=== PATIENT | male | born 1950 | race Caucasian/White ===

== ENCOUNTER → 2021-05-25 | Outpatient (CLI) | payer MEDICARE | LOC: CT 10:19 | DX: R51.9 Headache, unspecified (principal); M54.2 Cervicalgia; G31.9 Degenerative disease of nervous system, unspecified | CPT/HCPCS: 70470; Q9967 ==

== ENCOUNTER → 2022-03-15 | Outpatient (CLI) | payer MEDICARE | LOC: KOH-I 13:54 | DX: F17.210 Nicotine dependence, cigarettes, uncomplicated (principal); R91.1 Solitary pulmonary nodule | CPT/HCPCS: 71271 ==

== ENCOUNTER → 2022-03-19 | Outpatient (CLI) | payer MEDICARE | LOC: KOH-I 15:21 | DX: M54.2 Cervicalgia (principal) | CPT/HCPCS: 72040 ==